=== PATIENT | male | born 1995 | race Two or more races ===

== ENCOUNTER 2024-04-20 20:37 | Emergency (ER) | payer MEDICAID, SELFPAY ==
[2024-04-20 20:37] VITALS: BMI 32.7
--- NOTE | 2024-04-20 20:39 | EKG_ITS ---
[facility] Test Date: 2024-04-20 Pat Name: FLOYD PALMER Department: Room: - Gender: Male Cut Pressman: BHUMIKA: 1995 Requested By: ED Temporary Provider Order Number: [id number] Reading MD: ED Temporary Provider Measurements Intervals [place] Rate: 100 P: 45 PA: 136 QRS: 100 QRSD: 108 T: 36 QT: 364 QTc: 471 Interpretive Statements SINUS TACHYCARDIA POSSIBLE LEFT ATRIAL ENLARGEMENT [-0.1mV P WAVE IN V1/V2] BORDERLINE RIGHT AXIS DEVIATION [QRS AXIS > 90] ABNORMAL RHYTHM ECG Compared to ECG 01/02/2024 16:51:04 T-wave abnormality no longer present /store/[email or web address]/[id number].pdf
[2024-04-20 20:43] VITALS: BP 176/82; PULSE 104; RESP 20; TEMP 36.7; O2SAT 97
--- NOTE | 2024-04-20 20:49 | XR_ITS ---
Examination: PA lateral chest 2 views Technique: Upright AP lateral chest 2 views Exam date and time: April 20, 2024 2100 hrs. Comparison 01/02/2024 Indications: Onset chest pain today Findings: Normal heart size. Lungs are clear. The osseous structures are intact Impression: No active disease
--- NOTE | 2024-04-20 20:49 | PD.EDRME ---
Rapid Medical Screening Exam RME Arrival date/time: 04/20/24 20:37 28 year old male present to ED for c/o of chest pain I have greeted and performed a focused initial assessment of this patient. A comprehensive ED assessment and evaluation of the patient, analysis of all test results, and completion of the medical decision making process will be conducted by additional ED providers. Chief Complaint: Chest Pain Time Seen by Provider: 04/20/24 20:46 Vital signs: Vital Signs Temperature 98.0 F 04/20/24 20:43 Pulse Rate 104 H 04/20/24 20:43 Respiratory Rate 20 04/20/24 20:43 Blood Pressure 176/82 H 04/20/24 20:43 Pulse Oximetry (%) 97 04/20/24 20:43 Oxygen Delivery Method Room Air 04/20/24 20:43
[2024-04-20 21:09] LABS: Basophils % (Auto) 1 % (0-2.5); Eosinophils # (Auto) 0.1 Thou/mm3 (0.0-0.5); Eosinophils % (Auto) 2 % (0-10); Hematocrit 43.3 % (41.0-53.0); Hemoglobin 14.8 g/dL (13.5-16.0); Immature Granulocytes % (Auto) 0 % (0-0); Immature Granulocytes Auto 0.01 Thou/mm3 (0.00-0.00); Lymphocytes # (Auto) 1.5 Thou/mm3 (1.0-4.8); Lymphocytes % (Auto) 24 % (10-50); Mean Corpuscular HGB Conc 34.2 g/dl (31.0-37.0); Mean Corpuscular Volume 82 fL (80-100); Monocytes # (Auto) 0.3 Thou/mm3 (0.0-0.8); Monocytes % (Auto) 5 % (0-12); Neutrophils # (Auto) 4.4 Thou/mm3 (1.8-7.7); Neutrophils % (Auto) 68 % (37-80); Nucleated Red Blood Cell % 0 /100 WBC (0); Platelet Count 190 Thou/mm3 (140-440); Red Blood Count 5.29 Miln/mm3 (4.50-5.90); White Blood Count 6.4 Thou/mm3 (3.8-10.6)
[2024-04-20 21:32] LABS: Anion Gap 11 (7-16); BUN/Creatinine Ratio 13 Ratio (12-20); Blood Urea Nitrogen 10 mg/dL (9-23); Carbon Dioxide 28.2 mMol/L (20.0-31.0); Chloride 103 mMol/L (98-107); Creatinine (Component) 0.8 mg/dL (0.6-1.3); Estimated Creatinine Clearance 185.9 mL/min (>60); Glucose 115 mg/dL (74-106); Potassium 3.8 mMol/L (3.4-5.1); Sodium 142 mMol/L (136-145); eGFR > 60 See Note
[2024-04-20 21:33] LABS: Alanine Aminotransferase 83 U/L (10-49); Albumin, Serum 4.7 gm/dL (3.5-5.0); Albumin/Globulin Ratio 1.5 (1.2-2.2); Alkaline Phosphatase 113 U/L (46-116); Aspartate Amino Transferase 60 U/L (0-34); Bilirubin,Total 0.5 mg/dL (0.3-1.2); Calcium 10.3 mg/dL (8.3-10.6); Calcium (Corrected) 10.3 mg/dL (8.5-10.1); Globulin 3.1 gm/dL (2.3-3.5); Magnesium 1.7 mg/dL (1.6-2.6); Osmolality,Calculated 283 (275-295); Total Protein 7.8 gm/dL (5.7-8.2); Troponin I < 0.020 ng/mL (0.0-0.045)
[2024-04-20 23:32] LABS: Amphetamine/Methamp Scrn,U Negative (Negative); Barbiturate Screen,Urine Negative (Negative); Benzodiazepines Screen,Urine Negative (Negative); Benzoylecgonine Screen, Ur Negative (Negative); Fentanyl Screen,Urine Negative (Negative); Opiate Screen,Urine Negative (Negative); THC Screen,Urine Negative (Negative)
[2024-04-20] MEDS: KETOROLAC INJ 60 MG/2 ML VIAL 30 MG IM (23:45)
--- NOTE | 2024-04-21 00:42 | PD.EDCHEST ---
ED Chest Pain RME/HPI General Chief Complaint: Chest Pain Stated Complaint: CHEST PAIN/ LEFT TINGLING/ NUMBESS X 30MINS Time Seen by Provider: 04/20/24 20:46 Arrival date/time: 04/20/24 20:37 RME / HPI RME / HPI narrative: 04/20/24 20:37 28 year old male present to ED for c/o of chest pain I have greeted and performed a focused initial assessment of this patient. A comprehensive ED assessment and evaluation of the patient, analysis of all test results, and completion of the medical decision making process will be conducted by additional ED providers. ------ Dr. Hartman?s Main ED Evaluation: Related Data Allergies Allergy/AdvReac Type Severity Reaction Status Date / Time No Known Allergies Allergy Mild Uncoded 07/24/08 16:56 Review of Systems Review of Systems Systems Reviewed: All systems reviewed, normal except as documented Past Medical History Social History SMOKING STATUS: Current some day smoker ED Exam Narrative Physical exam: GENERAL APPEARANCE: alert and oriented x 4, well-developed, well-nourished, no acute distress VITALS: All vitals were reviewed and the pulse ox is 97% on room air, which is normal according to my interpretation. HEENT: Normocephalic, atraumatic; pupils equal, round, reactive to light; EOMI; mucous membranes pink, moist; oropharynx clear NECK: Supple LUNGS: CTABL; no wheezes, no rales, no rhonchi HEART: Regular rate, regular rhythm; normal S1, S2; no murmurs ABDOMEN: non distended; normal BS; soft, no tenderness, no guarding, no rebound; no masses, no organomegaly, no hernia BACK: no CVA tenderness EXTREMITIES: atraumatic; no edema NEUROLOGIC: awake; alert and oriented x4; cranial nerves II-XII grossly intact; no focal sensory or motor deficits PSYCHIATRIC: appropriate mood and affect SKIN: warm, dry, normal color; no rashes Course Course Course Narrative: CXR is ordered for determining the etiology of chest pain. Quality Measures none Orders Category Date Time Status EKG (ED ONLY) *Do not use* NOW Care 04/20/24 20:39 Completed EKG (ED Only) Stat Exams 04/20/24 20:39 Draft XR chest 2V Stat Exams 04/20/24 20:49 Completed CBC Stat Lab 04/20/24 21:00 Completed CMP [Comprehensive Metabolic Panel] Stat Lab 04/20/24 21:00 Completed Drug Screen,Urine Stat Lab 04/20/24 22:22 Completed Mag [Magnesium] Stat Lab 04/20/24 21:00 Completed Troponin I Stat Lab 04/20/24 21:00 Completed Ketorolac Inj [Toradol Inj] Med 04/20/24 23:39 Discontinued 30 mg IM X1 ONE Vital Signs Vital signs: Vital Signs Temperature 98.0 F 04/20/24 20:43 Pulse Rate 104 H 04/20/24 20:43 Respiratory Rate 20 04/20/24 20:43 Blood Pressure 176/82 H 04/20/24 20:43 Pulse Oximetry (%) 97 04/20/24 20:43 Oxygen Delivery Method Room Air 04/20/24 20:43 Chest Pain MDM Narrative MDM Narrative:: Scribe Attestation: 04/21/24 - Bettina Price am scribing for and in the presence of Dr. Hartman. Patient data External records reviewed:: [facility] previous records (Per chart review, patient was seen here on 01/02/24 for dizziness, but left prior to being seen.) Clinical information provided by:: patient Social determinants that could affect healthcare access:: none Patient has the following chronic illnesses:: none How is presenting disease/condition affected by chronic disease/condition?: no chronic disease Evaluation data The following diagnostics were reviewed and interpreted by me:: lab results, radiology exam(s) and EKG tracing(s) Lab and/or radiology exams considered but not ordered:: none Medications / Prescriptions Medications or Prescriptions considered but not ordered:: none Medication administrations:: Medication Administration History Discontinued Medications Ketorolac Tromethamine (Ketorolac Inj 60 Mg/2 Ml Vial) 30 mg IM X1 ONE Stop: 04/20/24 23:40 Last Admin: 04/20/24 23:45 Dose: 30 mg Documented By: SE see above Discharge Plan Prescriptions/Referrals Referrals: No Primary/Family,Physician [Primary Care Provider] - In 1 week Patient/Caregiver Discharge Instructions Print Language: Czech
--- NOTE | 2024-04-21 02:24 | PC.NURSE ---
DR CAPUTO WENT INTO PT ROOM TO REVIEW PT AND PT WAS NOT IN ROOM. PT NOT IN ER DEPT AT THIS TIME.
== END 2024-04-21 02:25 | disposition left against medical advice (07) ==
PROVIDERS: Physician Assistant; Emergency Provider Emergency Medicine
DX: R07.9 Chest pain, unspecified (principal); R00.0 Tachycardia, unspecified
CPT/HCPCS: 36415; 71046; 80053; 80307; 83735; 84484; 85025; 96372; 99283; J1885

== ENCOUNTER 2025-04-03 19:05 | Emergency (ER) | payer MEDICAID, SELFPAY ==
[2025-04-03 19:07] VITALS: PULSE 116; O2SAT 97; BMI 31.0
[2025-04-03 19:19] VITALS: PULSE 107; RESP 18; TEMP 36.8; O2SAT 94
--- NOTE | 2025-04-03 19:24 | PD.EDPSYCH ---
ED Psych RME/HPI General Chief Complaint: Psychiatric Symptoms Stated Complaint: DRUG USE Time Seen by Provider: 04/03/25 19:14 Arrival date/time: 04/03/25 19:05 29-year-old male patient was brought in by EMS for paranoia. Apparently patient admits of abusing meth and cocaine today and since then he has been having auditory and visual hallucination. Patient denies any homicidal ideation. Denies any suicidal ideation. Patient answers and follows commands. GCS of 15. Related Data Allergies Allergy/AdvReac Type Severity Reaction Status Date / Time No Known Allergies Allergy Mild Abdominal Uncoded 04/03/25 19:07 Pain Review of Systems Review of Systems Narrative Review of Systems: Review of system reviewed and within normal limits except mentioned in HPI ED Exam Narrative Physical exam: VITAL SIGNS: Reviewed. GENERAL APPEARANCE: Alert and interactive, follows commands, no acute distress, with bizarre thoughts HEAD AND FACE: Non-traumatic. ENT: PERRL, pink conjunctivitis, eyelid no trauma, Mucous membrane moist. NECK: Supple, nontender, no nuchal rigidity. CHEST: No tenderness, no crepitus, no paradoxical movement, no retractions. LUNGS: Clear, well ventilated, symmetric, no rales, no wheezing, no ronchi, no stridor, good breath sounds bilaterally. HEART: Regular rate, regular rhythm, no murmur, no gallops. ABDOMEN: Soft, positive bowel sounds, nondistended, no guarding, nontender, no rebound, no masses, RECTAL: Deferred. GENITAL: Deferred. NEUROLOGICAL: Gross motor function intact sensory function intact, Appropriate for age. MUSCULOSKELETAL: low back nontender, full range of motion. EXTREMITIES: Nontender, full range of motion. SKIN: Color pink, dry, no rash, no lacerations, no abrasions, no contusions. LYMPHATICS: Deferred. Course Quality Measures none Orders Category Date Time Status Diet Regular Diet 04/04/25 Breakfast Active Acetaminophen Stat Lab 04/03/25 20:06 Completed Alcohol, Blood Medical Stat Lab 04/03/25 20:06 Completed CBC Stat Lab 04/03/25 20:06 Completed CMP [Comprehensive Metabolic Panel] Stat Lab 04/03/25 20:06 Completed Drug Screen,Urine Stat Lab 04/03/25 19:59 Completed Salicylate Stat Lab 04/03/25 20:06 Completed Urinalysis Stat Lab 04/03/25 19:59 Completed Diazepam [Valium] Med 04/03/25 21:21 Discontinued 10 mg PO X1 ONE DiphenhydrAMINE [Benadryl] Med 04/03/25 19:24 Discontinued 50 mg PO X1 ONE Haloperidol Lactate [Haldol Inj] Med 04/03/25 21:44 Discontinued 5 mg IM X1 ONE POTASSIUM CHL 10% Liq 15 ML Med 04/04/25 03:28 Discontinued 40 meq PO X1 ONE POTASSIUM CHL 10% Liq 15 ML Med 04/04/25 07:00 Discontinued 40 meq PO X1 ONE Referral Sand Cutter NOW 04/04/25 01:02 Completed Vital Signs Vital signs: Vital Signs Temperature 98.3 F 04/03/25 19:19 Pulse Rate 107 H 04/03/25 19:19 Respiratory Rate 18 04/03/25 19:19 Pulse Oximetry (%) 94 L 04/03/25 19:19 Oxygen Delivery Method Room Air 04/03/25 19:19 Psych MDM Narrative MDM Narrative:: 29-year-old male patient was brought in by EMS for paranoia. Apparently patient admits of abusing meth and cocaine today and since then he has been having auditory and visual hallucination. Patient denies any homicidal ideation. Denies any suicidal ideation. Patient answers and follows commands. GCS of 15. Patient was tested positive for marijuana cocaine and methamphetamine. Patient also was noted with a potassium of 3.2 Was given potassium replacement, Haldol IM, Valium and Benadryl Care transferred to Dr. Trevino for final disposition Patient data External records reviewed:: None Clinical information provided by:: patient Social determinants that could affect healthcare access:: substance use Patient has the following chronic illnesses:: None How is presenting disease/condition affected by chronic disease/condition?: exacerbated by Evaluation data The following diagnostics were reviewed and interpreted by me:: lab results Lab and/or radiology exams considered but not ordered:: None Interpretation Summary: See above Medications / Prescriptions Medications or Prescriptions considered but not ordered:: None Medication administrations:: Medication Administration History Discontinued Medications Diazepam (Diazepam 5 Mg Tablet) 10 mg PO X1 ONE Stop: 04/03/25 21:22 Last Admin: 04/03/25 21:35 Dose: 10 mg Documented By: Diphenhydramine HCl (Diphenhydramine 25 Mg Capsule) 50 mg PO X1 ONE Stop: 04/03/25 19:25 Last Admin: 04/03/25 19:33 Dose: 50 mg Documented By: ALLEN Haloperidol Lactate (Haloperidol Lact Inj 5 Mg/Ml Vial) 5 mg IM X1 ONE Stop: 04/03/25 21:45 Last Admin: 04/03/25 21:55 Dose: 5 mg Documented By: ALLEN Potassium Chloride (Potassium Chloride 10% 20 Meq/15 Ml Udc) 40 meq PO X1 ONE Stop: 04/04/25 03:29 Last Admin: 04/04/25 04:05 Dose: Not Given Documented By: ALLEN Non-Admin Reason: Duplicate Medication on eMAR Potassium Chloride (Potassium Chloride 10% 20 Meq/15 Ml Udc) 40 meq PO X1 ONE Stop: 04/04/25 07:01 Last Admin: 04/04/25 06:31 Dose: 40 meq Documented By: ALLEN See above Consultations Consultation(s) initiated? (list below): No Diagnosis Psych Differential Diagnosis: acute psychosis and drug-induced psychotic disorder Most likely diagnosis given after review of the tests above:: Drug-induced psychotic behavior, methamphetamine abuse, cocaine abuse, marijuana abuse hypokalemia Admission Indicated Admission indicated?: not indicated Admission Request Was there a request for admission?: No Disposition Plan Disposition Plan: other (specify) Discharge Plan Plan Patient Disposition: HOME (Self Care) Prescriptions/Referrals Referrals: No Primary/Family,Physician [Primary Care Provider] - In 1 week Problem List Clinical Impression: Acute psychosis, Hypokalemia, Methamphetamine intoxication, Cocaine intoxication, Marijuana use Patient/Caregiver Discharge Instructions Education Materials: Understanding Methamphetamine ..., ED Psychosis Print Language: Wallisian Stand Alone Forms: Bettye Award Info., Patient Portal Info Letter
[2025-04-03 19:40] VITALS: BP 159/92
[2025-04-03 20:12] LABS: Collection Type, Urine Clean Catch
--- NOTE | 2025-04-03 20:20 | PC.NURSE ---
PT HAS DRANK 2400 CC OF WATER
[2025-04-03 20:24] LABS: Bacteria,Urine Rare; Bilirubin,Urine Negative (Negative); Blood,Urine Negative (Negative); Clarity,Urine Clear (Clear/Hazy); Color,Urine Yellow (Lt Yel-Yel); Glucose, Urine Negative (Negative); Hyaline Casts,Urine 1 /hpf (0-1); Ketones,Urine 1+ (Negative); Leukocyte Esterase,Urine Negative (Negative); Nitrite,Urine Negative (Negative); PH,Urine 6.0 (5.0-7.0); Protein,Urine 1+ (Neg - Trace); RBC,Urine 4 /hpf (0-3); Specific Gravity,Urine 1.035 (1.001-1.035); Squamous Epithelial Cell,Urine < 1 /hpf (0-5); Urobilinogen,Urine 4.0 mg/dL (0.0-1.0); WBC,Urine 2 /hpf (0-5)
[2025-04-03 20:26] LABS: Basophils # (Auto) 0.0 Thou/mm3 (0.0-0.2); Basophils % (Auto) 0 % (0-2.5); Eosinophils # (Auto) 0.0 Thou/mm3 (0.0-0.5); Eosinophils % (Auto) 0 % (0-10); Hematocrit 46.0 % (41.0-53.0); Hemoglobin 15.7 g/dL (13.5-16.0); Immature Granulocytes Auto 0.03 Thou/mm3 (0.00-0.00); Lymphocytes # (Auto) 1.3 Thou/mm3 (1.0-4.8); Lymphocytes % (Auto) 14 % (10-50); Mean Corpuscular HGB Conc 34.1 g/dl (31.0-37.0); Mean Corpuscular Hemoglobin 29.0 pg (25.0-35.0); Mean Corpuscular Volume 85 fL (80-100); Monocytes # (Auto) 0.7 Thou/mm3 (0.0-0.8); Monocytes % (Auto) 7 % (0-12); Neutrophils # (Auto) 7.1 Thou/mm3 (1.8-7.7); Neutrophils % (Auto) 78 % (37-80); Nucleated Red Blood Cell # 0.00 Thou/mm3 (0.00-0.00); Nucleated Red Blood Cell % 0 /100 WBC (0); Platelet Count 216 Thou/mm3 (140-440); RDW Standard Deviation 39.3 fL (35.1-43.9); Red Blood Count 5.41 Miln/mm3 (4.50-5.90); White Blood Count 9.2 Thou/mm3 (3.8-10.6)
[2025-04-03 20:39] LABS: Amphetamine/Methamp Scrn,U Positive (Negative); Barbiturate Screen,Urine Negative (Negative); Benzodiazepines Screen,Urine Negative (Negative); Benzoylecgonine Screen, Ur Positive (Negative); Fentanyl Screen,Urine Negative (Negative); Opiate Screen,Urine Negative (Negative); THC Screen,Urine Positive (Negative)
[2025-04-03 20:59] LABS: Acetaminophen < 2.0 mcg/mL (10.0-20.0); Alanine Aminotransferase 78 U/L (10-49); Albumin, Serum 5.2 gm/dL (3.5-5.0); Albumin/Globulin Ratio 1.7 (1.2-2.2); Alcohol, Blood Medical < 3.0 mg/dL (0-10.0); Alkaline Phosphatase 80 U/L (46-116); Anion Gap 12 (7-16); Aspartate Amino Transferase 69 U/L (0-34); BUN/Creatinine Ratio 12 Ratio (12-20); Bilirubin,Total 1.1 mg/dL (0.3-1.2); Blood Urea Nitrogen 14 mg/dL (9-23); Calcium 9.8 mg/dL (8.3-10.6); Calcium (Corrected) 9.8 mg/dL (8.5-10.1); Carbon Dioxide 25.5 mMol/L (20.0-31.0); Chloride 100 mMol/L (98-107); Creatinine (Component) 1.2 mg/dL (0.6-1.3); Estimated Creatinine Clearance 103.4 mL/min (>60); Globulin 3.1 gm/dL (2.3-3.5); Glucose 107 mg/dL (74-106); Osmolality,Calculated 274 (275-295); Potassium 3.2 mMol/L (3.4-5.1); Salicylate < 3.0 mg/dL; Sodium 137 mMol/L (136-145); Total Protein 8.3 gm/dL (5.7-8.2); eGFR > 60 See Note
[2025-04-03] MEDS: DIAZEPAM 5 MG TABLET 10 MG PO (21:35)
[2025-04-03] MEDS: HALOPERIDOL LACT INJ 5 MG/ML VIAL IM (21:55)
--- NOTE | 2025-04-04 02:39 | EDNOTE_ITS ---
Emergency Room Addendum Addendum Narrative: I took over the care from Karin Jimenez NP at _11PM_ on _04/03/25_. See previous notes for complete H & P and ED course. I reviewed all diagnostic test results. Blood tests and urine tests remarkable for K 3.2 and UDS positive for methamphetamine/cocaine/marijuana. Diagnoses include: Acute psychosis Hypokalemia Methamphetamine intoxication Cocaine intoxication Marijuana use Treatment here included: Oral diazepam 10 mg and Benadryl 50 mg IM and Haldol 50 mg IM (by Karin Jimenez NP) I ordered oral KCl 40 mEq Entered order for evaluation by our ED career information specialist. Patient improved and remained stable during my watch. At 6 AM on 04/04/2025, the care of the patient was transferred to Dr. TANG. Petar Trevino MD
[2025-04-04 06:23] VITALS: BP 111/54; PULSE 78; RESP 18; TEMP 37; O2SAT 98
[2025-04-04] MEDS: POTASSIUM CHLORIDE 10% 20 MEQ/15 ML UDC 40 MEQ PO (06:31)
--- NOTE | 2025-04-04 07:23 | PC.NURSE ---
patient denies wanting to harm himself or hurt himself in anyway
--- NOTE | 2025-04-04 09:52 | PC.CC ---
ED Waistline Joiner Lockstitch spoke to attending Dr. Hurst and received confirmation of no MH eval - just SS needs for Pt. Systems Architect spoke to Pt bedside. Pt received breakfast and began eating. Pt reports substance use. Pt denies SI/HI. Pt denied hx of MH. Pt declined referrals to MH but accepted resources. Systems Architect provided Pt with local community resources, MH resources, and substance abuse resources.
--- NOTE | 2025-04-04 09:54 | EDNOTE_ITS ---
Emergency Room Addendum Addendum Narrative: Care of patient assumed at change of shift. 29 yo male patient presented with acute psychosis, drug screen positive for methamphetamines and cocaine. patient financial services manager consult requested by INNA Jimenez. Patient is medically cleared. Patient is not on a hold. material requirements worker provided resources. Stable for discharge.
--- NOTE | 2025-04-04 09:54 | PD.EDADDENDU ---
Emergency Room Addendum Addendum Narrative: Care of patient assumed at change of shift. 29 yo male patient presented with acute psychosis, drug screen positive for methamphetamines and cocaine. financial services professional consult requested by INNA Jimenez. Patient is medically cleared. Patient is not on a hold. farmworker chicken farm provided resources. Stable for discharge.
[2025-04-04 10:44] VITALS: BP 155/80; PULSE 80; RESP 16; TEMP 36.6; O2SAT 96
== END 2025-04-04 10:47 | disposition home or self-care (01) ==
PROVIDERS: Nurse Practitioner Family; Emergency Provider Emergency Medicine
DX: F23 Brief psychotic disorder (principal); F12.90 Cannabis use, unspecified, uncomplicated; F14.129 Cocaine abuse with intoxication, unspecified; F15.129 Other stimulant abuse with intoxication, unspecified; E87.6 Hypokalemia
CPT/HCPCS: 36415; 80053; 80307; 80320; 80329; 81001; 85025; 96372; 99283; J1630; A9270; G0480